=== PATIENT | female | born 1940 | race Caucasian/White ===

== ENCOUNTER 2016-11-20 21:13 | Emergency (ER) | payer MEDICARE ==
[~2016-11-20] VITALS: Ht 162.6 cm; Wt 68.8 kg
[~2016-11-20 21:13] MED LIST: ALTOPREV20 MG OR; AMOXICILLIN875 MG OR; ASPIRIN81 MG PO; CIPROFLOXACN500 MG PO; FLUARIX QUADRIV1 IN1 IM; FLUOXETINE20 MG PO; LEVOTHYROXIN100 MC1 PO; LEVOTHYROXIN125 MC1 PO; LEVOTHYROXIN88 MCG PO; LIPITOR10 M1 PO; LISINOP/HCTZ1 TA1 PO; METRONIDAZOL500 MG PO; MULTI VIT PO; PROBIOTI2 PO; RANITIDINE150 M1 OR; THYROID OR; TRAZODONE50 MG PO; ULTRAVATE0.051 EX; UNKNOWN BP MED; VALTREX1 GM PO
[2016-11-20] MEDS ORDERED: LISINOP/HCTZ1 TA1 PO (21:51)
[2016-11-20] MEDS ORDERED: AMLODIPINE2.5 MG PO (21:51)
[2016-11-20] MEDS ORDERED: ATORVASTATIN CA10 MG PO (21:52)
[2016-11-20] MEDS ORDERED: ATENOLOL25 MG PO (21:58)
[2016-11-20 22:02] LABS: HEMATOCRIT 44.2 % (37.0-47.0); HEMOGLOBIN 14.3 g/dl (12.0-16.0); IMMATURE GRANULOCYTES 0.3 % (0.0-1.0); MEAN CELL VOLUME 95.5 fL CALC (80.0-100.0); MEAN CORPUSCULAR HGB 30.9 pG CALC (26.0-32.0); MEAN CORPUSCULAR HGB CONC 32.4 g/L CALC (32.0-36.0); NEUT# 6.96 thou/uL (2.00-7.15); RED BLOOD COUNT 4.63 mill/uL (4.20-5.60); RED CELL DISTRI WIDTH 13.4 % (11.5-15.5)
[2016-11-20 22:16] LABS: ALBUMIN 4.9 g/dL (3.2-5.0); ALKALINE PHOSPHATASE 66 u/l (38-126); AMYLASE 105 u/l (30-110); ANION GAP 17 (6-22 (CALC)); BILIRUBIN, TOTAL 0.5 mg/dL (0.0-1.4); BUN 18 mg/dL (8-23); BUN/CREATININE RATIO 18 (12-20 (CALC)); CALCIUM 10.1 mg/dL (8.4-10.2); CARBON DIOXIDE 20 mmol/l (22-30); CHLORIDE 109 mmol/l (95-108); GFR 54 ML/MIN (>=60 (CALC)); GFR FOR AFR.AMER. > 60 ML/MIN (>=60 (CALC)); GLUCOSE 96 mg/dL (82-115); LIPASE 242 u/l (23-300); POTASSIUM 3.4 mmol/l (3.5-5.1); SGOT/AST 32 u/l (9-36); SGPT/ALT 38 u/l (11-66); SODIUM 142 mmol/l (137-146)
[2016-11-20 22:24] LABS: MYOGLOBIN 51 ng/mL (0 - 62)
[2016-11-20 23:45] LABS: URINE BILIRUBIN - DIPSTICK NEGATIVE (NEGATIVE); URINE BLOOD DIPSTICK NEGATIVE (NEGATIVE); URINE CLARITY CLEAR; URINE COLOR YELLOW; URINE GLUCOSE - DIPSTICK NEGATIVE (NEGATIVE); URINE KETONE 15 mg/dL (NEGATIVE); URINE LEUK ESTERASE NEGATIVE (NEGATIVE); URINE NITRITE - DIPSTICK NEGATIVE (Negative); URINE PROTEIN - DIPSTICK TRACE mg/dL (NEG-TRACE); URINE SPECIFIC GRAVITY >=1.030; URINE UROBILINOGEN - DIPSTICK 0.2 E.U./dL (0.2)
[2016-11-21 03:26] VITALS: BP 105/63
== END 2016-11-21 03:29 | disposition home or self-care (01) ==
LOC: ED 21:13
PROVIDERS: Emergency Medicine
DX: R19.7 Diarrhea, unspecified (principal); R11.2 Nausea with vomiting, unspecified; R10.11 Right upper quadrant pain; R10.12 Left upper quadrant pain; I10 Essential (primary) hypertension; E78.00 Pure hypercholesterolemia, unspecified

== ENCOUNTER 2018-10-22 14:32 | Emergency (ER) | payer MEDICARE ==
[~2018-10-22] VITALS: Ht 162.6 cm; Wt 70.0 kg
[~2018-10-22 14:32] MED LIST changes: +AMLODIPINE2.5 MG PO; +ATENOLOL25 MG PO; +ATORVASTATIN CA10 MG PO
[2018-10-22 14:49] LABS: URINE BILIRUBIN - DIPSTICK NEGATIVE (NEGATIVE); URINE BLOOD DIPSTICK MODERATE (NEGATIVE); URINE COLOR YELLOW; URINE GLUCOSE - DIPSTICK NEGATIVE (NEGATIVE); URINE KETONE NEGATIVE (NEGATIVE); URINE NITRITE - DIPSTICK NEGATIVE (Negative); URINE PH 6.5 (4.5-8.0); URINE PROTEIN - DIPSTICK 30 mg/dL (NEG-TRACE); URINE UROBILINOGEN - DIPSTICK 0.2 E.U./dL (0.2)
[2018-10-22 15:05] LABS: URINE LEUK ESTERASE LARGE (NEGATIVE); URINE SQUAMOUS EPITHELIAL CELL FEW EPI/hpf (0-FEW)
[2018-10-22 15:19] LABS: HEMATOCRIT 39.3 % (37.0-47.0); HEMOGLOBIN 12.5 g/dl (12.0-16.0); IMMATURE GRANULOCYTES 0.5 % (0.0-5.0); MEAN CELL VOLUME 94.9 fL CALC (80.0-100.0); MEAN CORPUSCULAR HGB 30.2 pG CALC (26.0-32.0); MEAN CORPUSCULAR HGB CONC 31.8 g/L CALC (32.0-36.0); NEUT# 5.98 thou/uL (2.00-7.15); RED BLOOD COUNT 4.14 mill/uL (4.20-5.60)
[2018-10-22 15:49] LABS: ALKALINE PHOSPHATASE 80 u/l (38-126); ANION GAP 13 (6-22 (CALC)); BUN 14 mg/dL (8-23); BUN/CREATININE RATIO 18 (12-20 (CALC)); CARBON DIOXIDE 28 mmol/l (22-30); CHLORIDE 102 mmol/l (95-108); CREATININE 0.8 mg/dL (0.5-1.0); GFR > 60 ML/MIN (>=60 (CALC)); GFR FOR AFR.AMER. > 60 ML/MIN (>=60 (CALC)); POTASSIUM 3.9 mmol/l (3.5-5.1); SGOT/AST 24 u/l (9-36); SODIUM 139 mmol/l (137-146); TOTAL PROTEIN 6.5 g/dL (6.3-8.2)
[2018-10-22 15:50] LABS: BILIRUBIN, TOTAL 0.8 mg/dL (0.0-1.4)
[2018-10-22 15:53] VITALS: BP 153/94
[2018-10-22] MEDS ORDERED: PYRIDIUM200 MG PO (16:00)
[2018-10-22] MEDS ORDERED: CEPHALEXIN500 M1 PO (16:00)
== END 2018-10-22 16:09 | disposition home or self-care (01) ==
LOC: ED 14:32
PROVIDERS: Emergency Medicine
DX: N39.0 Urinary tract infection, site not specified (principal); B96.20 Unspecified Escherichia coli [E. coli] as the cause of diseases classified elsewhere; I10 Essential (primary) hypertension; E05.90 Thyrotoxicosis, unspecified without thyrotoxic crisis or storm; Z16.12 Extended spectrum beta lactamase (ESBL) resistance

== ENCOUNTER 2020-06-23 15:35 | Emergency (ER) | payer OTHER, MEDICARE ==
[~2020-06-23] VITALS: Ht 162.6 cm; Wt 65.0 kg
[~2020-06-23 15:35] MED LIST changes: +CEPHALEXIN500 M1 PO; +PYRIDIUM200 MG PO
[2020-06-23 18:12] VITALS: BP 127/75
== END 2020-06-23 18:12 | disposition home or self-care (01) | DRG 552 ==
LOC: ED 15:35
DX: S16.1XXA Strain of muscle, fascia and tendon at neck level, initial encounter (principal); I10 Essential (primary) hypertension; E05.90 Thyrotoxicosis, unspecified without thyrotoxic crisis or storm; E78.00 Pure hypercholesterolemia, unspecified; V49.40XA Driver injured in collision with unspecified motor vehicles in traffic accident, initial encounter
CPT/HCPCS: L0120

== ENCOUNTER 2022-05-10 12:31 | Emergency (ER) | payer MEDICARE ==
[2022-05-10] VITALS (17 sets, daily range): BP systolic 68–99; BP diastolic 39–70
[~2022-05-10] VITALS: Ht 162.6 cm; Wt 72.7 kg
[2022-05-10 13:02] LABS: BASO% 0.2 % (0-3); EOS% 0.2 % (0-8); HEMATOCRIT 47.2 % (37.0-47.0); IMMATURE GRANULOCYTES 0.2 % (0.0-5.0); LYMPH% 5.2 % (15-41); MEAN CELL VOLUME 96.5 fL CALC (80.0-100.0); MEAN CORPUSCULAR HGB 31.7 pG CALC (26.0-32.0); MEAN CORPUSCULAR HGB CONC 32.8 g/dL CAL (32.0-36.0); MONO% 2.1 % (2-13); NEUT# 10.33 thou/uL (2.00-7.15); NEUT% 92.1 % (42-76); RED BLOOD COUNT 4.89 mill/uL (4.20-5.60)
[2022-05-10 13:03] LABS: HEMOGLOBIN 15.5 g/dl (12.0-16.0)
[2022-05-10 13:15] LABS: ALBUMIN 4.5 g/dL (3.2-5.0); ALKALINE PHOSPHATASE 76 u/l (38-126); AMYLASE 91 u/l (30-110); ANION GAP 11 (6-22 (CALC)); BUN 22 mg/dL (8-23); BUN/CREATININE RATIO 28 (12-20 (CALC)); CARBON DIOXIDE 24 mmol/l (22-30); CHLORIDE 108 mmol/l (95-108); CREATININE 0.8 mg/dL (0.5-1.0); GFR FOR AFR.AMER. > 60 ML/MIN (>=60 (CALC)); GFR OTHER RACES > 60 ML/MIN (>=60 (CALC)); LIPASE 110 u/l (23-300); POTASSIUM 3.9 mmol/l (3.5-5.1); SGOT/AST 37 u/l (9-36); SODIUM 139 mmol/l (137-146); TOTAL PROTEIN 7.5 g/dL (6.3-8.2)
[2022-05-10 13:16] LABS: BILIRUBIN, TOTAL 0.7 mg/dL (0.0-1.4)
== END 2022-05-10 21:07 | disposition short-term general hospital (02) ==
LOC: ED 12:31
PROVIDERS: Emergency Medicine
DX: K83.8 Other specified diseases of biliary tract (principal); I48.91 Unspecified atrial fibrillation; I10 Essential (primary) hypertension; E78.00 Pure hypercholesterolemia, unspecified; E05.90 Thyrotoxicosis, unspecified without thyrotoxic crisis or storm; Z90.49 Acquired absence of other specified parts of digestive tract; Z20.822 Contact with and (suspected) exposure to COVID-19
CPT/HCPCS: Q9967

== ENCOUNTER 2023-12-14 10:53 | Emergency (ER) | payer MEDICARE ==
[~2023-12-14] VITALS: Ht 162.6 cm; Wt 74.8 kg
[2023-12-14] VITALS (12 sets, daily range): BP systolic 103–141; BP diastolic 67–86
[2023-12-14 11:33] LABS: BASO% 0.5 % (0-3); EOS% 2.3 % (0-8); IMMATURE GRANULOCYTES 0.2 % (0.0-5.0); LYMPH% 32.8 % (15-41); MEAN CORPUSCULAR HGB 30.9 pG CALC (26.0-32.0); MEAN CORPUSCULAR HGB CONC 32.9 g/dL CAL (32.0-36.0); MONO% 6.6 % (2-13); NEUT# 3.59 thou/uL (2.00-7.15); NEUT% 57.6 % (42-76); RED BLOOD COUNT 4.3 mill/uL (4.20-5.60); RED CELL DISTRI WIDTH 13.1 % (11.5-15.5)
[2023-12-14 11:36] LABS: HEMATOCRIT 40.4 % (37.0-47.0); HEMOGLOBIN 13.3 g/dl (12.0-16.0)
[2023-12-14] MEDS ORDERED: ATORVASTATIN CA20 MG PO (11:46)
[2023-12-14] MEDS ORDERED: ZESTRIL10 M1 PO (11:47)
[2023-12-14] MEDS ORDERED: HYDROCHLOROT25 MG PO (11:48)
[2023-12-14] MEDS ORDERED: TOPROL XL25 M1 PO (11:49)
[2023-12-14 11:50] LABS: ALBUMIN 4.4 g/dL (3.2-5.0); ALKALINE PHOSPHATASE 76 u/l (38-126); ANION GAP 9 (6-22 (CALC)); BILIRUBIN, TOTAL 0.6 mg/dL (0.02-1.3); BUN 16 mg/dL (8-23); BUN/CREATININE RATIO 22 (12-20 (CALC)); CARBON DIOXIDE 27 mmol/l (22-30); CHLORIDE 103 mmol/l (95-108); CREATININE 0.7 mg/dL (0.5-1.0); ESTIMATED GFR 86 ML/MIN (>=90 (CALC)); SGOT/AST 31 u/l (9-36); SODIUM 135 mmol/l (137-146); TOTAL PROTEIN 6.9 g/dL (6.3-8.2)
[2023-12-14] MEDS ORDERED: LEVOTHYROXIN88 MC1 PO (11:50)
[2023-12-14] MEDS ORDERED: MELOXICAM7.5 MG PO (11:52)
[2023-12-14] MEDS ORDERED: CLONIDINE0.1 MG PO (11:52)
[2023-12-14] MEDS ORDERED: AMLODIPINE BESYL5 MG PO (11:53)
== END 2023-12-14 13:42 | disposition home or self-care (01) ==
LOC: ED 10:53
PROVIDERS: Family Medicine
DX: I10 Essential (primary) hypertension (principal); E05.90 Thyrotoxicosis, unspecified without thyrotoxic crisis or storm; Z20.822 Contact with and (suspected) exposure to COVID-19